=== PATIENT | male | born 2000 | race Caucasian/White ===

== ENCOUNTER 2022-09-28 12:21 | Emergency (ER) | payer MEDICAID ==
[~2022-09-28] VITALS: Ht 185.4 cm; Wt 103.0 kg
[2022-09-28 12:55] VITALS: BP 140/82
[2022-09-28] MEDS ORDERED: NEOM10DR45 LEFT EAR (13:55)
[2022-09-28] MEDS ORDERED: AMOX-117 PO (13:55)
== END 2022-09-28 14:08 | disposition home or self-care (01) ==
LOC: ER 12:22
DX: H66.92 Otitis media, unspecified, left ear (principal)
CPT/HCPCS: 99283